=== PATIENT | male | born 1950 | race Caucasian/White ===

== ENCOUNTER 2020-07-17 19:12 | Inpatient (IN) ==
--- NOTE | 2020-07-17 19:33 | Emergency Department Note ---
History of Present Illness General Chief complaint: Abdominal Pain Stated complaint: ABD PAIN Time Seen by Provider: 07/17/20 19:18 Source: patient Mode of arrival: other Limitations: no limitations History of Present Illness Provider complaint: Abdominal pain Onset (ago): hour(s) Location: abdomen Radiation: back Severity: moderate Pain Consistency: + constant Maximum Pain Intensity: 10 Current Pain Intensity: 10 Quality: + constant Relieved By: + none Exacerbated By: + none Associated symptoms: + fever/chills, + loss of appetite and + nausea/vomiting; no chest pain and no shortness of breath Treatments prior to arrival: none This is a 70-year-old male 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 Patient states he began feeling nauseous and having abdominal pain earlier today and thought perhaps he had food poisoning. Patient states he did have several episodes of soft stools however no overt diarrhea. No melena, no hematochezia. Patient states he was nauseated however did not have any vomiting. Patient states he did have chills however did not feel as though he was fevered. Patient denies any recent change in medications. Patient states he does have a history of kidney stones also and as the pain persisted he began to think that was the etiology. Patient denies any history of diverticulitis, inguinal hernia, or any abdominal surgery. Patient states he has had a total of 5 kidney stones, the last one was a few years ago and he was able to pass it. Patient denies any recent change in his urine. Pt seen during a time of high acuity and national emergency pandemic while wearing PPE. Home Medications Medication Instructions Recorded Confirmed Type hydrochlorothiazide 25 mg PO DAILY 07/17/20 07/17/20 History levothyroxine 112 mcg PO DAILY 07/17/20 07/17/20 History lisinopril 10 mg PO DAILY 07/17/20 07/17/20 History lovastatin 40 mg PO HS 07/17/20 07/17/20 History ondansetron 4 mg PO Q6H 07/17/20 07/17/20 History Allergies Allergy/AdvReac Type Severity Reaction Status Date / Time coffee (Coffea arabica) Allergy Unknown Unverified 07/17/20 19:56 Past Med/Surg History Medical History (Updated 07/18/20 @ 12:59 by Tracie M. Black, SOFTWARE DEVELOPMENT PROJECT MANAGER) Hyperlipidemia Hypertension Hypothyroidism (acquired) Ureterolithiasis Social History Smoking Status: Never smoker Hx Alcohol Use: No Hx Substance Use: No Preferred Language: Greek Communication Ability: Effective Gear Grinder Required: No Beliefs That Will Affect Care: None Current Living Situation: Other Current Living Situation Comment: Long Term Feels Safe at Home: Yes Assistive Devices: None Review of Systems See HPI for pertinent positives & negatives. and A total of 10 systems reviewed and were otherwise negative Physical Exam Vital Signs Vital Signs - 24 hr 07/17/20 23:58 07/18/20 01:16 Pulse Rate 89 Pulse Rate [Apical] 102 H Respiratory Rate 16 16 Respiratory Effort / Characteristics Non-Labored Spontaneous Respiratory Depth Normal Blood Pressure 120/72 Blood Pressure [Left Arm] 139/97 Blood Pressure Mean [Left Arm] 111 Pulse Oximetry 95 92 Oxygen Delivery Method Room Air Room Air GENERAL: alert, uncomfortable appearing, well nourished, mild distress, non- toxic EYE EXAM: normal conjunctiva, PERRL and EOM's grossly intact OROPHARYNX: no exudate, no erythema, lips, buccal mucosa, and tongue normal and mucous membranes are moist NECK: supple, no nuchal rigidity, no adenopathy, non-tender LUNGS: Clear to auscultation. Normal chest wall mechanics, no w/r/r HEART: no murmurs, S1 normal and S2 normal ABDOMEN: abdomen soft, tenderness with palpation in the periumbilical area as well as the left lower quadrant, normo-active bowel sounds, no masses, no rebound or guarding. BACK: Back is symmetrical on inspection and there is no deformity, no midline tenderness, no CVA tenderness. SKIN: no rashes and no bruising UPPER EXTREMITIES: upper extremities are grossly normal. FROM, nml pulses b/l. LOWER EXTREMITIES: No pitting edema. FROM, nml pulses b/l. NEURO EXAM: Normal sensorium, cranial nerves II-XII grossly intact, normal speech, no gross weakness of arms, no gross weakness of legs. Gross sensation intact. Course Course 2032: Patient updated on results. 2039: Discussed with Dr. Brooks, urology. 2119: Discussed with [facility] nurse, they will contact provider, physician anatomic pathology assistant who sent the patient over. 2139: Discussed with BETTE Cooper at [facility]. If patient does return tonight, they could arrange follow-up as an outpatient with urology, however they have no capability of controlling his pain beyond Tylenol or ibuprofen. He states it will take several days for him to get approval for an outpatient trip to an office also. 2340: Patient states pain is returning and is now worse in his back and his abdomen. UA was reassuring. Patient states he did have coronavirus in April and recovered. Administered Medications Acetaminophen (Acetaminophen 325 Mg Tab) 650 mg PO Q4H PRN PRN Reason: pain/fever Stop: 08/17/20 01:55 Last Admin: 07/18/20 19:57 Dose: 650 mg Documented by: [id number] Hydromorphone HCl (Hydromorphone Inj 0.5 Mg/0.5 Ml Syr) 0.5 mg IV Q3H PRN PRN Reason: Severe Pain Stop: 08/01/20 03:16 Last Admin: 07/18/20 19:59 Dose: 0.5 mg Documented by: [id number] Admin: 07/18/20 16:24 Dose: 0.5 mg Documented by: [id number] Admin: 07/18/20 09:11 Dose: 0.5 mg Documented by: [id number] Admin: 07/18/20 05:47 Dose: 0.5 mg Documented by: [id number] Ceftriaxone Sodium 2,000 mg/ (Dextrose) 70 mls @ 100 mls/hr IV Q24H MARTIN; Protocol Stop: 07/28/20 02:29 Last Infusion: 07/18/20 03:07 Dose: 0 mls/hr Documented by: [id number] Admin: 07/18/20 02:25 Dose: 100 mls/hr Documented by: [id number] Sodium Chloride (Nss 1000ml) 1,000 mls @ 125 mls/hr IV .Q8H MARTIN Stop: 08/17/20 01:59 Last Admin: 07/18/20 19:57 Dose: 125 mls/hr Documented by: [id number] Infusion: 07/18/20 19:39 Dose: 125 mls/hr Documented by: [id number] Admin: 07/18/20 11:39 Dose: 125 mls/hr Documented by: [id number] Infusion: 07/18/20 11:08 Dose: 125 mls/hr Documented by: [id number] Infusion: 07/18/20 03:08 Dose: 125 mls/hr Documented by: [id number] Infusion: 07/18/20 02:26 Dose: 0 mls/hr Documented by: [id number] Admin: 07/18/20 02:25 Dose: 125 mls/hr Documented by: [id number] Levothyroxine Sodium (Levothyroxine Sodium 112 Mcg Tablet) 112 mcg PO DAILYBB [facility] Stop: 08/17/20 13:59 Last Admin: 07/18/20 13:44 Dose: 112 mcg Documented by: [id number] Lovastatin (Lovastatin 20 Mg Tab) 40 mg PO HS [facility] Stop: 08/17/20 20:59 Last Admin: 07/18/20 20:04 Dose: 40 mg Documented by: [id number] Tamsulosin HCl (Tamsulosin Hcl 0.4 Mg Cap) 0.4 mg PO QAM [facility] Stop: 08/17/20 08:59 Last Admin: 07/18/20 07:29 Dose: 0.4 mg Documented by: [id number] Discontinued Medications Fentanyl Citrate (Fentanyl Citrate 100 Mcg/2 Ml Vial) 50 mcg IV Q15M PRN PRN Reason: Pain Stop: 07/31/20 20:36 Last Admin: 07/17/20 22:31 Dose: 50 mcg Documented by: [id number] Sodium Chloride (Nss 1000ml) 1,000 mls @ 999 mls/hr IV .Q1H1M ONE Stop: 07/17/20 20:34 Last Infusion: 07/17/20 21:11 Dose: 0 mls/hr Documented by: [id number] Admin: 07/17/20 20:08 Dose: 999 mls/hr Documented by: [id number] Acetaminophen (Ofirmev) 1,000 mg in 100 mls @ 400 mls/hr IV NOW STA Stop: 07/17/20 20:15 Last Infusion: 07/17/20 20:35 Dose: 0 mls/hr Documented by: [id number] Admin: 07/17/20 20:13 Dose: 400 mls/hr Documented by: [id number] Magnesium Sulfate/Dextrose (Magnesium Sulfate / D5w) 1 gm in 100 mls @ 100 mls/hr IV NOW STA Stop: 07/17/20 22:47 Last Infusion: 07/17/20 23:11 Dose: 0 mls/hr Documented by: [id number] Admin: 07/17/20 22:00 Dose: 100 mls/hr Documented by: [id number] Sodium Chloride (Nss) 500 mls @ 125 mls/hr IV .Q4H MARTIN Stop: 08/16/20 22:14 Last Infusion: 07/18/20 02:01 Dose: 0 mls/hr Documented by: [id number] Admin: 07/17/20 23:10 Dose: 125 mls/hr Documented by: [id number] Sodium Chloride (Nss) 500 mls @ 125 mls/hr IV .Q4H MARTIN Stop: 08/17/20 09:14 Last Admin: 07/18/20 11:43 Dose: Not Given Documented by: [id number] Morphine Sulfate (Morphine Sulfate 4 Mg/Ml 1 Ml Carp\Vial) 4 mg IV NOW STA Stop: 07/17/20 23:41 Last Admin: 07/17/20 23:57 Dose: 4 mg Documented by: [id number] Tamsulosin HCl (Tamsulosin Hcl 0.4 Mg Cap) 0.4 mg PO NOW ONE Stop: 07/17/20 20:02 Last Admin: 07/17/20 20:13 Dose: 0.4 mg Documented by: [id number] Medical Decision Making Differential Diagnosis Differential diagnoses includes but is not limited to gastritis, peptic ulcer disease, GERD, gallbladder disease, pancreatitis, small bowel obstruction, acute coronary syndrome, pericarditis, ischemic bowel, irritable bowel disease, irritable bowel syndrome, appendicitis, diverticulitis, malignancy, hernia, urinary tract infection, torsion, [/ectopic (if female)], perforation, trauma, infectious. Medical Records Attestation: I reviewed the patient's medical records. Home Medications Current Medication List: was personally reviewed by me Laboratory Data Attestation: I reviewed the patient's lab results. Result diagrams: 07/17/20 19:29 07/17/20 19:29 Lab Results 07/17/20 07/17/20 07/17/20 Range/Units 19:29 19:29 20:09 WBC 15.15 H (4.8-10.8) K/uL RBC 5.47 (4.7-6.1) M/uL Hgb 17.1 (14.0-18.0) g/dL Hct 47.9 (42-52) % MCV 87.6 (80-100) fL MCH 31.3 (25-34) pg MCHC 35.7 (32-36) g/dL RDW Std Deviation 44.0 (36.4-46.3) fL RDW Coeff of Morteza 13.6 (11.5-14.5) % Plt Count 200 (130-400) K/uL MPV 11.7 H (7.4-10.4) fL Immature Gran % (Auto) 0.3 % Neut % (Auto) 82.2 % Lymph % (Auto) 8.3 % [place] % (Auto) 9.0 % Eos % (Auto) 0.1 % Baso % (Auto) 0.1 % Neut # (Auto) 12.46 H (1.4-6.5) K/uL Lymph # (Auto) 1.25 (1.2-3.4) K/uL [place] # (Auto) 1.36 H (0.11-0.59) K/uL Eos # (Auto) 0.01 (0-0.5) K/uL Baso # (Auto) 0.02 (0-0.2) K/uL Immature Gran # (Auto) 0.05 H (0.00-0.02) K/uL PT 11.9 (9.0-12.0) Seconds INR 1.1 (0.9-1.1) Sodium 138 (136-145) mmol/L Potassium 4.1 (3.5-5.1) mmol/L Chloride 102 (98-107) mmol/L Carbon Dioxide 28 (21-32) mmol/L Anion Gap 8.0 (3-11) BUN 19 H (7-18) mg/dl Creatinine 1.56 H (0.6-1.4) mg/dl Est Cr Clr Drug Dosing 46.5 ml/min Est GFR ( Amer) 51.0 Est GFR (Non-Af Amer) 44.0 BUN/Creatinine Ratio 11.9 (10-20) Glucose 153 H (70-99) mg/dl Calcium 9.8 (8.5-10.1) mg/dl Magnesium 1.7 L (1.8-2.4) mg/dl Total Bilirubin 1.2 H (0.2-1) mg/dl AST 41 H (15-37) U/L ALT 84 H (12-78) U/L Alkaline Phosphatase 69 (45-117) U/L Troponin I < 0.015 (0-0.045) ng/ml Total Protein 8.3 H (6.4-8.2) gm/dl Albumin 4.2 (3.4-5.0) gm/dl Globulin 4.1 H (2.5-4.0) gm/dl Albumin/Globulin Ratio 1.0 (0.9-2) Lipase 132 (73-393) U/L Urine Color Urine Appearance (Clear) Urine pH (4.5-7.5) Ur Specific [place] (1.000-1.030) Urine Protein (Negative) Urine Glucose (UA) (Negative) Urine Ketones (Negative) Urine Blood (Negative) Urine Nitrite (Negative) Urine Bilirubin (Negative) Urine Urobilinogen (Negative) Ur Leukocyte Esterase (Negative) Urine WBC (Auto) (0-5) /hpf Urine RBC (Auto) (0-4) /hpf U Hyaline Cast (Auto) (0-5) /lpf U Epithel Cells (Auto) (0-5) /lpf Urine Bacteria (Auto) (Negative) COVID-19 Eval Order SARS-CoV-2, RNA, NAAT (NEGATIVE) 07/17/20 07/18/20 07/18/20 Range/Units 22:40 00:01 00:01 WBC (4.8-10.8) K/uL RBC (4.7-6.1) M/uL Hgb (14.0-18.0) g/dL Hct (42-52) % MCV (80-100) fL MCH (25-34) pg MCHC (32-36) g/dL RDW Std Deviation (36.4-46.3) fL RDW Coeff of [place] (11.5-14.5) % Plt Count (130-400) K/uL MPV (7.4-10.4) fL Immature Gran % (Auto) % Neut % (Auto) % Lymph % (Auto) % [place] % (Auto) % Eos % (Auto) % Baso % (Auto) % Neut # (Auto) (1.4-6.5) K/uL Lymph # (Auto) (1.2-3.4) K/uL [place] # (Auto) (0.11-0.59) K/uL Eos # (Auto) (0-0.5) K/uL Baso # (Auto) (0-0.2) K/uL Immature Gran # (Auto) (0.00-0.02) K/uL PT (9.0-12.0) Seconds INR (0.9-1.1) Sodium (136-145) mmol/L Potassium (3.5-5.1) mmol/L Chloride (98-107) mmol/L Carbon Dioxide (21-32) mmol/L Anion Gap (3-11) BUN (7-18) mg/dl Creatinine (0.6-1.4) mg/dl Est Cr Clr Drug Dosing ml/min Est GFR ( Amer) Est GFR (Non-Af Amer) BUN/Creatinine Ratio (10-20) Glucose (70-99) mg/dl Calcium (8.5-10.1) mg/dl Magnesium (1.8-2.4) mg/dl Total Bilirubin (0.2-1) mg/dl AST (15-37) U/L ALT (12-78) U/L Alkaline Phosphatase (45-117) U/L Troponin I (0-0.045) ng/ml Total Protein (6.4-8.2) gm/dl Albumin (3.4-5.0) gm/dl Globulin (2.5-4.0) gm/dl Albumin/Globulin Ratio (0.9-2) Lipase (73-393) U/L Urine Color Yellow Urine Appearance Clear (Clear) Urine pH 5.0 (4.5-7.5) Ur Specific [place] 1.016 (1.000-1.030) Urine Protein 1+ H (Negative) Urine Glucose (UA) Negative (Negative) Urine Ketones 1+ H (Negative) Urine Blood 1+ H (Negative) Urine Nitrite Negative (Negative) Urine Bilirubin Negative (Negative) Urine Urobilinogen Negative (Negative) Ur Leukocyte Esterase Negative (Negative) Urine WBC (Auto) 1-5 (0-5) /hpf Urine RBC (Auto) 0-4 (0-4) /hpf U Hyaline Cast (Auto) 1-5 (0-5) /lpf U Epithel Cells (Auto) 5-10 H (0-5) /lpf Urine Bacteria (Auto) Negative (Negative) COVID-19 Eval Order Covid19 [facility] SARS-CoV-2, RNA, NAAT NEGATIVE (NEGATIVE) Imaging Data Radiologist's Impression: ABDOMEN AND PELVIS CT WITHOUT CONTRAST CT DOSE: 599.25 mGy.cm HISTORY: Acute left lower quadrant abdominal pain LLQ pain TECHNIQUE: Multiaxial CT images of the abdomen and pelvis were performed without contrast. A dose lowering technique was utilized adhering to the principles of ALARA. COMPARISON STUDY: None. FINDINGS: Imaged inferior cardiac chambers are unremarkable. Coronary artery calcifications. Mild linear subsegmental bibasilar atelectasis/scarring. No pneumatosis or pneumoperitoneum. The unenhanced spleen, mildly atrophic pancreas, adrenal glands and gallbladder are unremarkable. Hepatic steatosis. 1.4 cm hypodense lesion of the superior pole right kidney is suggestive of a probable cyst. Hypodense 3.2 cm exophytic lesion of the interpolar left kidney also likely represents a cyst. 7 mm proteinaceous or hemorrhagic cyst of the inferior pole left kidney. Mild left-sided hydronephrosis secondary to an obstructing 6 x 9 x 11 mm calculus of the ureteropelvic junction. 5 mm nonobstructing calculus of the interpolar left kidney. Reactive perinephric edema. Prostamegaly with evidence of chronic bladder outlet obstruction. There is an 8 mm linear calculus dependently within the urinary bladder diverticulum versus ureterocele on image 359 series 3. There is an additional small diverticulum along the right posterolateral urinary bladder. Small fat filled left inguinal hernia. No aortic aneurysm. No adenopathy. Small hiatal hernia with mild distal esophageal wall thickening. No bowel obstruction. Colonic diverticulosis. No CT evidence of acute appendicitis. Unremarkable soft tissues. The bones appear intact. IMPRESSION: 1. Mild left-sided hydronephrosis secondary to an obstructing 6 x 9 x 11 mm calculus of the ureteropelvic junction. 2. Nonobstructing left nephrolithiasis. 3. Prostamegaly with chronic bladder outlet obstruction. 4. 8 mm calculus is noted dependently within a small urinary bladder diverticulum versus ureterocele. No right-sided hydronephrosis. 5. Colonic diverticulosis. 6. Hepatic steatosis. 7. Additional findings as above. ACT 112: Negative or not required by law. The above report was generated using voice recognition software. It may contain grammatical, syntax or spelling errors. Electronically signed by: Leonardo Ji M.D. 07/17/2020 8:07 PM ECG Data Attestation: I personally reviewed and interpreted this ECG as follows: Indication: + abdominal pain Rate (beats per minute): 103 Rhythm: + sinus tachycardia ECG Intervals/blocks: + Right Bundle branch block and + Prolonged QT ECG [place]: + Normal ECG ST segments: + Nonspecific ST abnormalities Blood Pressure Blood Pressure Findings: Elevated blood pressure MDM Narrative This is a 70-year-old male presents to the emergency department due to concern for worsening abdominal pain. Patient found to have significant ureteral calculus, and does have a prior history of stones. Patient was cautiously rehydrated, labs are drawn and sent and showed a leukocytosis of 15, as well as PRAKASH of 1.5 which is increased from a prior drawn earlier today at the retirement. Patient was afebrile, was nauseated on arrival but did not vomit. Patient was cautiously given pain medication here. I did speak with urology, and then with the on-call provider in the [facility] to see if outpatient management was possible. According to the [facility] provider, they do not have the capability to provide pain medication there. Patient could not be discharged with any additional pain medication, and they had concerned about being able to control nausea if pain got so severe. Due to concern for inappropriate discharge plan, case discussed with hospitalist for inpatient monitoring and symptomatic control of his renal colic and likely urologic evaluation. An order was placed for continuous cardiac monitoring. The monitor shows a rate of _97_ with _normal sinus rhythm. Impression & Plan Abdominal pain, Ureterolithiasis, PRAKASH (acute kidney injury), Hypomagnesemia Discharge Plan Visit Data Chief Complaint: Abdominal Pain Stated Complaint: ABD PAIN ED Provider: Emmy Painter Discharge Problem: Abdominal pain, Ureterolithiasis, PRAKASH (acute kidney injury), Hypomagnesemia Patient Disposition: Admitted As Inpatient Condition: Good Discharge Instructions Interventions: ED Discharge Assessment Last Done: 07/18/20 01:16 Discharge Problem: Abdominal pain Qualifiers: Abdominal location: lower abdomen, unspecified Qualified Code(s): R10.30 - Lower abdominal pain, unspecified
[2020-07-17] MEDS ORDERED: SODIUM CHLORIDE 0.9% 1000ML 1,000 ML IV ONE (19:34)
[2020-07-17] MEDS ORDERED: ACETAMINOPHEN 1,000 MG/100 ML VIAL IV STA (20:01)
[2020-07-17] MEDS ORDERED: TAMSULOSIN HCL 0.4 MG CAP PO ONE (20:01)
[2020-07-17 20:02] LABS: Basophils # (auto) 0.02 K/uL (0-0.2); Basophils % (auto) 0.1 %; Eosinophils # (auto) 0.01 K/uL (0-0.5); Eosinophils % (auto) 0.1 %; Hematocrit (blood only) 47.9 % (42-52); Hemoglobin 17.1 g/dL (14.0-18.0); Immature Granulocytes # (auto) 0.05 K/uL (0.00-0.02); Immature Granulocytes % (auto) 0.3 %; Lymphocytes # (auto) 1.25 K/uL (1.2-3.4); Lymphocytes % (auto) 8.3 %; Mean Corpuscular Hemoglobin 31.3 pg (25-34); Mean Corpuscular Hgb Conc 35.7 g/dL (32-36); Mean Corpuscular Volume 87.6 fL (80-100); Mean Platelet Volume 11.7 fL (7.4-10.4); Monocytes # (auto) 1.36 K/uL (0.11-0.59); Neutrophils # (auto) 12.46 K/uL (1.4-6.5); Neutrophils % (auto) 82.2 %; Platelet Count 200 K/uL (130-400); RDW Coefficient of Variation 13.6 % (11.5-14.5); Red Blood Count 5.47 M/uL (4.7-6.1); White Blood Count 15.15 K/uL (4.8-10.8)
--- NOTE | 2020-07-17 20:08 | CT Scan Report ---
ABDOMEN AND PELVIS CT WITHOUT CONTRAST CT DOSE: 599.25 mGy.cm HISTORY: Acute left lower quadrant abdominal pain LLQ pain TECHNIQUE: Multiaxial CT images of the abdomen and pelvis were performed without contrast. A dose lo wering technique was utilized adhering to the principles of ALARA. COMPARISON STUDY: None. FINDINGS: Imaged inferior cardiac chambers are unremarkable. Coronary artery calcifications. Mild [place] ear subsegmental bibasilar atelectasis/scarring. No pneumatosis or pneumoperitoneum. The unenhanced s pleen, mildly atrophic pancreas, adrenal glands and gallbladder are unremarkable. Hepatic steatosis. 1.4 cm hypodense lesion of the superior pole right kidney is suggestive of a probable cyst. Hypodense 3.2 cm exophytic lesion of the interpolar left kidney also likely represents a cyst. 7 mm proteinace ous or hemorrhagic cyst of the inferior pole left kidney. Mild left-sided hydronephrosis secondary to an obstructing 6 x 9 x 11 mm calculus of the ureteropelvic junction. 5 mm nonobstructing calculus of the interpolar left kidney. Reactive perinephric edema. Prostamegaly with evidence of chronic bladde r outlet obstruction. There is an 8 mm linear calculus dependently within the urinary bladder diverti culum versus ureterocele on image 359 series 3. There is an additional small diverticulum along the r ight posterolateral urinary bladder. Small fat filled left inguinal hernia. No aortic aneurysm. No ad enopathy. Small hiatal hernia with mild distal esophageal wall thickening. No bowel obstruction. Colonic divert iculosis. No CT evidence of acute appendicitis. Unremarkable soft tissues. The bones appear intact. IMPRESSION: 1. Mild left-sided hydronephrosis secondary to an obstructing 6 x 9 x 11 mm calculus of the ureterope lvic junction. 2. Nonobstructing left nephrolithiasis. 3. Prostamegaly with chronic bladder outlet obstruction. 4. 8 mm calculus is noted dependently within a small urinary bladder diverticulum versus ureterocele. No right-sided hydronephrosis. 5. Colonic diverticulosis. 6. Hepatic steatosis. 7. Additional findings as above. ACT 112: Negative or not required by law. The above report was generated using voice recognition software. It may contain grammatical, syntax o r spelling errors. Electronically signed by: Leonardo Ji M.D. 07/17/2020 8:07 PM
[2020-07-17 20:24] LABS: Alanine Aminotransferase 84 U/L (12-78); Albumin Level 4.2 gm/dl (3.4-5.0); Aspartate Aminotransferase 41 U/L (15-37); BUN Creatinine Ratio 11.9 (10-20); Blood Urea Nitrogen 19 mg/dl (7-18); Calcium 9.8 mg/dl (8.5-10.1); Carbon Dioxide 28 mmol/L (21-32); Chloride 102 mmol/L (98-107); Creatinine Clr Calc Pharmacy 46.5 ml/min; Glucose 153 mg/dl (70-99); Lipase 132 U/L (73-393); Magnesium 1.7 mg/dl (1.8-2.4); Potassium 4.1 mmol/L (3.5-5.1); Sodium 138 mmol/L (136-145)
[2020-07-17 20:29] LABS: Alkaline Phosphatase 69 U/L (45-117); Bilirubin,Total 1.2 mg/dl (0.2-1); Globulin 4.1 gm/dl (2.5-4.0); Total Protein 8.3 gm/dl (6.4-8.2); Troponin I < 0.015 ng/ml (0-0.045)
[2020-07-17 20:29] LABS: INR 1.1 (0.9-1.1); Prothrombin Time 11.9 Seconds (9.0-12.0)
[2020-07-17] MEDS ORDERED: fentaNYL citrate 100 MCG/2 ML VIAL IV PRN (20:37)
[2020-07-17] MEDS ORDERED: MAGNESIUM SULFATE / D5W 1 GM/100 ML BAG IV STA (21:48)
[2020-07-17] MEDS ORDERED: SODIUM CHLORIDE 0.9% 500 ML IV SCH (22:15)
[2020-07-17 23:29] LABS: Appearance Urine Clear (Clear); Bacteria Urine Automated Negative (Negative); Bilirubin Urine Negative (Negative); Blood Urine 1+ (Negative); Color Urine Yellow; Glucose Urine UA Negative (Negative); Ketones Urine 1+ (Negative); Leukocyte Esterase Urine Negative (Negative); Nitrite Urine Negative (Negative); Protein Urine 1+ (Negative); RBC Urine Automated 0-4 /hpf (0-4); Specific Gravity Urine 1.016 (1.000-1.030); Urobilinogen Urine Negative (Negative)
[2020-07-17] MEDS ORDERED: MoRPHine SULFATE 4 MG/ML 1 ML CARP\\VIAL IV STA (23:40)
--- NOTE | 2020-07-18 00:53 | History & Physical Report ---
Date of Service July 18, 2020 Assessment & Plan (1) Calculus of distal left ureter: 6 x 9 x 11 distal left ureteral calculus/mild left hydroureteronephrosis- NPO Follow urine culture and sensitivity Ceftriaxone 1 g IV daily Start tamsulosin 0.4 mg daily Dilaudid 0.5 mg IV every 3 hours as needed severe pain Consult urology Present on Admission?: Yes (2) Hydronephrosis of left kidney: See above Present on Admission?: Yes (3) BPH w urinary obs/LUTS: Place on tamsulosin 0.4 mg p.o. daily Present on Admission?: Yes (4) PRAKASH (acute kidney injury): Creatinine 1.56 upon admission. Placed on NSS 100 mils per hour Repeat BMP in a.m. May be combination of BPH with LUTS and obstructing kidney stone Present on Admission?: Yes (5) Hepatic steatosis: Likely cause of abnormal LFTs. Follow serially Present on Admission?: Yes (6) Hypothyroidism (acquired): While n.p.o., hold levothyroxine 112 mcg daily Present on Admission?: Yes (7) Hypertension: Hold HCTZ and lisinopril due to PRAKASH Present on Admission?: Yes (8) Hyperlipidemia: While patient is n.p.o., hold lovastatin Present on Admission?: Yes History of Present Illness Chief Complaint: The patient presents to the emergency department with complaint of abdominal pain and nausea worsening over the past few days. Primary Care Provider: [facility] The patient is a 70-year-old male resident of [facility], with past medical history including hypertension, hypothyroidism, and hyperlipidemia. Who presents with symptoms as noted above. Work-up in the emergency department included the following abnormal laboratories: Creatinine 1.56, glucose 153, magnesium 1.7, total bilirubin 1.2, AST 41, ALT 84 and Covid 19 -. CT scan of abdomen and pelvis showed mild left-sided hydronephrosis secondary to an obstructing 6 x 9 x 11 calculus at the ureteropelvic junction. There was prostatomegaly with chronic bladder outlet obstruction. Colonic diverticulosis. Hepatic steatosis. Allergies Allergy/AdvReac Type Severity Reaction Status Date / Time coffee (Coffea arabica) Allergy Unknown Unverified 07/17/20 19:56 Home Medications Medication Instructions Recorded Confirmed Type hydrochlorothiazide 25 mg PO DAILY 07/17/20 07/17/20 History levothyroxine 112 mcg PO DAILY 07/17/20 07/17/20 History lisinopril 10 mg PO DAILY 07/17/20 07/17/20 History lovastatin 40 mg PO HS 07/17/20 07/17/20 History ondansetron 4 mg PO Q6H 07/17/20 07/17/20 History Past Med/Surg History Medical History (Updated 07/18/20 @ 03:19 by Johnny Cunningham MD) Hyperlipidemia Hypertension Hypothyroidism (acquired) Ureterolithiasis Social History Smoking Status: Never smoker Hx Alcohol Use: No Hx Substance Use: No Preferred Language: Croatian Communication Ability: Effective Full Stack Php Developer Required: No Beliefs That Will Affect Care: None Current Living Situation: Other Current Living Situation Comment: Nursing Home Feels Safe at Home: Yes Assistive Devices: None Review of Systems Review of Systems: The patient denies chest pain, palpitations, shortness of breath, dyspnea on exertion, cough, lower extremity swelling, sore throat, fevers, chills, sweats, vomiting, blood in urine or stool, dysuria, urinary frequency or urgency, lightheadedness, dizziness, headache, memory loss, loss of consciousness, rash, abnormal bruising or bleeding, imbalance, focal or generalized weakness, numbness or tingling in arms or legs, generalized arthralgias or myalgias, neck pain, or night sweats. The review of systems is otherwise negative other than for that already noted above, and at least 10 systems have been reviewed. Physical Exam Physical Exam: The patient is awake, alert and oriented 3, well developed and well nourished, normocephalic and atraumatic, lying in bed and in no acute distress. HEENT--PERRL, EOMI, mucous membranes and oropharynx dry. Neck--supple. No JVD. No bruits. Thyroid normal, trachea midline, no adenopathy. Heart--normal S1 and S2. No murmurs, rubs or gallops. Lungs--clear bilaterally, no respiratory distress, no accessory muscle use. Abdomen--normal bowel sounds and soft. Tenderness left lower quadrant and left flank area, and suprapubic Extremities--no cyanosis or clubbing. No edema. Dermatologic--normal skin turgor, normal color, no abnormal lymph nodes, no rash. Neurologic--cranial nerves II through XII grossly intact. Rheumatologic--normal range of motion. Psychiatric--normal affect. Results & Data Results & Data ([facility]) Vital Signs (Past 12 Hours) Vital Signs Temp Pulse Pulse Resp BP BP Pulse Ox 07/17/20 23:58 102 H 16 139/97 95 07/17/20 21:45 64 19 121/72 100 07/17/20 20:42 97 H 18 150/88 H 97 07/17/20 19:13 97.5 F L 106 H 20 189/102 H 99 Laboratory Results Laboratory Results WBC 15.15 K/uL (4.8-10.8) H 07/17/20 19: RBC 5.47 M/uL (4.7-6.1) 07/17/20 19: Hgb 17.1 g/dL (14.0-18.0) 07/17/20 19: Hct 47.9 % (42-52) 07/17/20 19: MCV 87.6 fL (80-100) 07/17/20 19: MCH 31.3 pg (25-34) 07/17/20 19: MCHC 35.7 g/dL (32-36) 07/17/20 19: RDW Std Deviation 44.0 fL (36.4-46.3) 07/17/20 19: RDW Coeff of Morteza 13.6 % (11.5-14.5) 07/17/20 19: Plt Count 200 K/uL (130-400) 07/17/20 19: MPV 11.7 fL (7.4-10.4) H 07/17/20 19: Immature Gran % (Auto) 0.3 % 07/17/20 19: Neut % (Auto) 82.2 % 07/17/20: Lymph % (Auto) 8.3 % 07/17/20: [place] % (Auto) 9.0 % 07/17/20 19: Eos % (Auto) 0.1 % 07/17/20 19: Baso % (Auto) 0.1 % 07/17/20: Neut # (Auto) 12.46 K/uL (1.4-6.5) H 07/17/20 19:29 Lymph # (Auto) 1.25 K/uL (1.2-3.4) 07/17/20 19:29 [place] # (Auto) 1.36 K/uL (0.11-0.59) H 07/17/20 19: Eos # (Auto) 0.01 K/uL (0-0.5) 07/17/20 19: Baso # (Auto) 0.02 K/uL (0-0.2) 07/17/20 19: Immature Gran # (Auto) 0.05 K/uL (0.00-0.02) H 07/17/20 19: PT 11.9 Seconds (9.0-12.0) 07/17/20 20:09 INR 1.1 (0.9-1.1) 07/17/20 20:09 Sodium 138 mmol/L (136-145) 07/17/20 19: Potassium 4.1 mmol/L (3.5-5.1) 07/17/20 19: Chloride 102 mmol/L (98-107) 07/17/20 19: Carbon Dioxide 28 mmol/L (21-32) 07/17/20 19: Anion Gap 8.0 (3-11) 07/17/20 19: BUN 19 mg/dl (7-18) H 07/17/20: Creatinine 1.56 mg/dl (0.6-1.4) H 07/17/20 19: Est Cr Clr Drug Dosing 46.5 ml/min 07/17/20 19: Est GFR ( Amer) 51.0 07/17/20 19: Est GFR (Non-Af Amer) 44.0 07/17/20 19: BUN/Creatinine Ratio 11.9 (10-20) 07/17/20 19: Glucose 153 mg/dl (70-99) H 07/17/20 19: Calcium 9.8 mg/dl (8.5-10.1) 07/17/20 19: Magnesium 1.7 mg/dl (1.8-2.4) L 07/17/20 19: Total Bilirubin 1.2 mg/dl (0.2-1) H 07/17/20 19: AST 41 U/L (15-37) H 07/17/20 19:29 ALT 84 U/L (12-78) H 07/17/20 19: Alkaline Phosphatase 69 U/L (45-117) 07/17/20 19: Troponin I < 0.015 ng/ml (0-0.045) 07/17/20 19: Total Protein 8.3 gm/dl (6.4-8.2) H 07/17/20 19: Albumin 4.2 gm/dl (3.4-5.0) 07/17/20 19: Globulin 4.1 gm/dl (2.5-4.0) H 07/17/20 19: Albumin/Globulin Ratio 1.0 (0.9-2) 07/17/20 19: Lipase 132 U/L (73-393) 07/17/20 19: Urine Color Yellow 07/17/20 22:40 Urine Appearance Clear (Clear) 07/17/20 22:40 Urine pH 5.0 (4.5-7.5) 07/17/20 22:40 Ur Specific [place] 1.016 (1.000-1.030) 07/17/20 22:40 Urine Protein 1+ (Negative) H 07/17/20 22:40 Urine Glucose (UA) Negative (Negative) 07/17/20 22:40 Urine Ketones 1+ (Negative) H 07/17/20 22:40 Urine Blood 1+ (Negative) H 07/17/20 22:40 Urine Nitrite Negative (Negative) 07/17/20 22:40 Urine Bilirubin Negative (Negative) 07/17/20 22:40 Urine Urobilinogen Negative (Negative) 07/17/20 22:40 Ur Leukocyte Esterase Negative (Negative) 07/17/20 22:40 Urine WBC (Auto) 1-5 /hpf (0-5) 07/17/20 22:40 Urine RBC (Auto) 0-4 /hpf (0-4) 07/17/20 22:40 U Hyaline Cast (Auto) 1-5 /lpf (0-5) 07/17/20 22:40 U Epithel Cells (Auto) 5-10 /lpf (0-5) H 07/17/20 22:40 Urine Bacteria (Auto) Negative (Negative) 07/17/20 22:40 COVID-19 Eval Order Covid19 [facility]Now [facility] 07/18/20 00:01 SARS-CoV-2, RNA, NAAT NEGATIVE (NEGATIVE) 07/18/20 00:01 Diagnostic Findings [facility], [id number] CT Scan Report Patient: MARTI DEAN [id number] Date: 07/17/20MR#: [id number]: BOX AAcct ID:[id number]: [facility] [place]irth Date: 1950City Zip: [place] [address]Bam: 70Location: EDSex: MRoom/Bed:Att Phy:Diagnosis: ABD PAINPri Phy: [facility] [place]Service Date: 07/17/20Fam Phy:Interpreting Phy: Chidi JiAdmit Phy: Ordering Phy: Emmy Painter DO cc: ~ ABDOMEN AND PELVIS CT WITHOUT CONTRAST CT DOSE: 599.25 mGy.cm HISTORY: Acute left lower quadrant abdominal pain LLQ pain TECHNIQUE: Multiaxial CT images of the abdomen and pelvis were performed without contrast. A dose lowering technique was utilized adhering to the principles of ALARA. COMPARISON STUDY: None. FINDINGS: Imaged inferior cardiac chambers are unremarkable. Coronary artery calcifications. Mild linear subsegmental bibasilar atelectasis/scarring. No pneumatosis or pneumoperitoneum. The unenhanced spleen, mildly atrophic pancreas, adrenal glands and gallbladder are unremarkable. Hepatic steatosis. 1.4 cm hypodense lesion of the superior pole right kidney is suggestive of a probable cyst. Hypodense 3.2 cm exophytic lesion of the interpolar left kidney also likely represents a cyst. 7 mm proteinaceous or hemorrhagic cyst of the inferior pole left kidney. Mild left-sided hydronephrosis secondary to an obstructing 6 x 9 x 11 mm calculus of the ureteropelvic junction. 5 mm nonobstructing calculus of the interpolar left kidney. Reactive perinephric edema. Prostamegaly with evidence of chronic bladder outlet obstruction. There is an 8 mm linear calculus dependently within the urinary bladder diverticulum versus ureterocele on image 359 series 3. There is an additional small diverticulum along the right posterolateral urinary bladder. Small fat filled left inguinal hernia. No aortic aneurysm. No adenopathy. Small hiatal hernia with mild distal esophageal wall thickening. No bowel obstruction. Colonic diverticulosis. No CT evidence of acute appendicitis. Unremarkable soft tissues. The bones appear intact. IMPRESSION: 1. Mild left-sided hydronephrosis secondary to an obstructing 6 x 9 x 11 mm calculus of the ureteropelvic junction. 2. Nonobstructing left nephrolithiasis. 3. Prostamegaly with chronic bladder outlet obstruction. 4. 8 mm calculus is noted dependently within a small urinary bladder diverticulum versus ureterocele. No right-sided hydronephrosis. 5. Colonic diverticulosis. 6. Hepatic steatosis. 7. Additional findings as above. ACT 112: Negative or not required by law. The above report was generated using voice recognition software. It may contain grammatical, syntax or spelling errors. Electronically signed by: Leonardo Ji M.D. 07/17/2020 8:07 PM Dictated: 07/17/201958Transcribed: 07/17/201958 Code Status & VTE Plan Code Status Full code VTE Prophylaxis Plan VTE Prophylaxis will be ordered: Yes PG Care Time/CCT Total # of Minutes Spent Total Time Spent with Patient: Total time spent is greater than 50% in coordination of care (as documented) at patient's floor/unit and/or counseling patient: Coding Level of Care Code 59150 Initial Inpt Care Lvl 3 Diagnoses Calculus of distal left ureter N20.1 Hydronephrosis of left kidney N13.30 BPH w urinary obs/LUTS N40.1; N13.8 PRAKASH (acute kidney injury) N17.9 Hepatic steatosis K76.0 Hypothyroidism (acquired) E03.9 Hypertension I10 Hyperlipidemia E78.5
[2020-07-18] MEDS ORDERED: ONDANSETRON INJ 2 MG/ML 2 ML VIAL IV PRN (01:56)
[2020-07-18] MEDS ORDERED: ACETAMINOPHEN 325 MG TAB PO PRN (01:56)
[2020-07-18] MEDS: cefTRIAXone SODIUM 2,000 MG in DEXTROSE 5% 50 ML IV SCH (02:25)
[2020-07-18] MEDS: SODIUM CHLORIDE 0.9% 1000ML 1,000 ML IV SCH ×3 (02:25→19:57)
[2020-07-18] MEDS: HYDROmorphone INJ 0.5 MG/0.5 ML SYR IV PRN ×4 (05:47→19:59)
[2020-07-18] MEDS: TAMSULOSIN HCL 0.4 MG CAP PO SCH (07:29)
[2020-07-18] MEDS ORDERED: SODIUM CHLORIDE 0.9% 500 ML IV SCH (09:15)
--- NOTE | 2020-07-18 09:46 | XRay Report ---
KUB CLINICAL HISTORY: Nephrolithiasis. FINDINGS: 2 AP supine abdominal radiographs are correlated with abdominal CT dated 07/17/2011. There i s a nonobstructed abdominal bowel gas pattern noting mild to moderate colonic fecal retention through out the colon. An 11 mm calculus is again seen projecting just below the left ureteropelvic junction. This is located between the L3 and L4 transverse processes. An additional 4 mm calculus projects ove r the left kidney. No calcifications are seen projecting over the right kidney. Phleboliths and prost atic calcifications are noted in the pelvis. The skeletal structures are osteopenic and appear intact . Lumbosacral spondylosis is observed. IMPRESSION: Left-sided nephrolithiasis as above. Electronically signed by: Romero Logan M.D. 07/18/2020 9:44 AM
--- NOTE | 2020-07-18 11:12 | Electrocardiogram Report ---
Test Reason : Blood Pressure : / mmHG Vent. Rate : 103 BPM Atrial Rate : 103 BPM P-R Int : 174 ms QRS Dur : 138 ms QT Int : 380 ms P-R-T Axes : 050 057 007 degrees QTc Int : 497 ms Sinus tachycardia Right bundle branch block Abnormal ECG No previous ECGs available Confirmed by Arie Gage ([id number]) on 07/18/2020 11:12:23 AM Referred By: [facility] SCI Confirmed By:Arie Gage
--- NOTE | 2020-07-18 12:31 | Urology Consultation ---
Date of Consultation July 18, 2020 Assessment & Plan (1) Hydronephrosis of left kidney: Patient admitted undergoing monitoring and hydration. Patient had PRAKASH. Imaging have been completed. I reviewed and interpreted imaging. Appears to have bilateral stone disease with an obstructing left UPJ stone with hydronephrosis. Appears to also have stone down near bladder possibly within a ureterocele. This does appear to be in the ureter however does not have any considerable hydronephrosis or signs of major obstruction. Patient has been tolerating supportive care. Is monitor. It is improving mildly with time and management. Pain continues to be an ongoing issue. Has not developed considerable bleeding or other issues. No fevers or chills. Patient's complicated medical and surgical history is reviewed and summarized above. Patient has previously had stone disease. Plan to continue with close monitoring and supportive care hydration and will monitor for spontaneous passage. We will need to consider possible intervention if patient suddenly worsens or does not show signs that stone is able to pass moving forward. Would likely need to consider bilateral stent placement especially with concern of ureteral stone bilaterally. No considerable signs of obstruction on right however imaging does appear to have a distal stone We will continue with monitoring and supportive care Consider intervention tomorrow if worsening or major change or fevers. If considerable decompensation or if develops bilateral obstruction may need more urgent intervention (2) Ureterolithiasis: History of Present Illness Attending Physician: Bhavik Bertrand MD History of Present Illness New consultation for patient with stone, discomfort, obstruction, and ill feelings. Patient developed sudden onset of pain into flank going down and radiating into groin and back in waves comes and goes. Can be severe at times. Discussed and reviewed patient's family history for any history of stone disease. No considerable history of family stone disease. Also, discussed patient's medical surgery history especially related to any history of urinary issues or stone disease. Patient was admitted and is undergoing observation. Patient on imaging appears to have obstructing stone on the left however may have ureteral stone on right possibly with ureterocele. Allergies Allergy/AdvReac Type Severity Reaction Status Date / Time coffee (Coffea arabica) Allergy Unknown Unverified 07/17/20 19:56 Home Medications Medication Instructions Recorded Confirmed Type hydrochlorothiazide 25 mg PO DAILY 07/17/20 07/17/20 History levothyroxine 112 mcg PO DAILY 07/17/20 07/17/20 History lisinopril 10 mg PO DAILY 07/17/20 07/17/20 History lovastatin 40 mg PO HS 07/17/20 07/17/20 History ondansetron 4 mg PO Q6H 07/17/20 07/17/20 History Patient History Medical History (Updated 07/18/20 @ 12:59 by SONU Montanez) Hyperlipidemia Hypertension Hypothyroidism (acquired) Ureterolithiasis Social History Smoking Status: Never smoker Hx Alcohol Use: No Hx Substance Use: No Preferred Language: Telugu Communication Ability: Effective Gas Appliance Servicer Required: No Beliefs That Will Affect Care: None Current Living Situation: Other Current Living Situation Comment: [facility] Feels Safe at Home: Yes Assistive Devices: None Review of Systems Review of Systems: All systems reviewed & are unremarkable except as noted in HPI & below Physical Exam Physical Exam: General: Alert and oriented x 3 in no acute distress. Patient is well nourished and well kept. HEENT: Normocephalic Atraumatic. Inspection normal. Cranial Nerves 2-12 Grossly intact. Nares are clear. Neck is supple. Normal inspection of face. Normal inspection of neck. Neurologic: No deficits on inspection. Baseline for motor function and sensory. Psychologic: Normal affect. Respiratory: Nonlabored. No use of accessory muscles. No tachypnea or dyspnea. Cardiovascular: No tachycardia Skin: [place] and Dry. No rashes or visible lesions. Extremities: Moving without issues. No motor deficits on inspection Lymphatics: No edema Abdomen: Soft Non-distended. No acites. No rebound or guarding. Results & Data ([facility]) Vital Signs (Past 12 Hours) Vital Signs Temp Pulse Pulse Resp BP BP Pulse Ox 07/18/20 07:02 36.8 C 87 18 119/72 97 07/18/20 02:02 36.5 C 97 H 16 123/77 96 07/18/20 01:16 89 16 120/72 92 PG Care Time/CCT Total # of Minutes Spent Total Time Spent with Patient: Total time spent is greater than 50% in coord ination of care (as documented) at patient's floor/unit and/or counseling patient: Coding Level of Care Code 67437 Initial Inpt Care Lvl 3 Diagnoses Hydronephrosis of left kidney N13.30 Ureterolithiasis N20.1
--- NOTE | 2020-07-18 12:50 | Hospitalist Progress Note ---
Date of Service July 18, 2020 Assessment & Plan (1) Left ureteral calculus: (2) Hydronephrosis of left kidney: Left UPJ stone with hydronephrosis. ? Distal right ureteral stone on CT as well. No hydronephrosis on the right. Patient has no evidence of urosepsis and is hemodynamically stable. Continue IV ceftriaxone. CBC in AM. Left UPJ stone visible on KUB. Patient seen by urology today. Plan for possible cystoscopy with bilateral ureteroscopy and ureteral stent placement tomorrow. Will provide diet today. NPO after midnight. Continue supportive management with IVF, pain control, and tamsulosin. UC&S ordered. Strain all urine. (3) PRAKASH (acute kidney injury): Cr 1.56 on admission. Likely secondary to ureteral obstruction from stone. Will recheck a CMP in the AM. (4) Hepatic steatosis: Likely cause of elevated AST/ALT. Lipase is normal. Recheck in AM. (5) Hypothyroidism (acquired): Continue levothyroxine 112mcg. TSH in AM. (6) Hypertension: BP stable at 119/72. HCTZ and Lisinopril held for PRAKASH. (7) Hyperlipidemia: Continue lovastatin 40mg HS (8) BPH w urinary obs/LUTS: Tamsulosin 0.4mg initiated at admission. Continue on discharge. Admission and Anticipated Discharge Date Admission Date: July 18, 2020 Subjective 70 yo male, [facility] inmate, admitted with 6 x 9 x 11mm left UPJ calculus with hydronephrosis. ? right distal ureteral calculus as well. Patient c/o left lower back pain 9/10 this morning. He is receiving Dilaudid. He denies any f/c or n/v. Review of Systems Constitutional: no fever and no chills Eyes: no worsening vision Ear, Nose, Mouth, Throat: no dizziness Respiratory: no dyspnea Cardiovascular: no chest pain Gastrointestinal: no abdominal pain, no nausea and no vomiting Musculoskeletal: left lower back pain 9/10 Psychiatric: no confusion Physical Exam Physical Exam: Temp Pulse Resp BP Pulse Ox 36.8 C 87 18 119/72 97 07/18/20 07:02 07/18/20 07:02 07/18/20 07:02 07/18/20 07:02 07/18/20 07:02 Patient is afebrile. Vital signs stable. Constitutional: average body habitus; no acute distress ENMT: Ears: no hearing impairment Neck: trachea midline, no thyromegaly Respiratory: normal respiratory effort, lungs clear to auscultation Cardiovascular: RRR, no murmur, no edema Gastrointestinal (Abdomen): Inspection/Auscultation: normal bowel sounds Percussion/Palpation: abdomen soft; abdomen nontender Musculoskeletal: No CVA tenderness. Psychiatric: A+Ox3, euthymic affect Lymphatic: no lymphadenopathy Results & Data Results & Data ([facility]) Vital Signs (Past 12 Hours) Vital Signs Temp Pulse Pulse Resp BP BP Pulse Ox 07/18/20 07:02 36.8 C 87 18 119/72 97 07/18/20 02:02 36.5 C 97 H 16 123/77 96 07/18/20 01:16 89 16 120/72 92 PG Care Time/CCT Total # of Minutes Spent Total Time Spent with Patient: Total time spent is greater than 50% in coordination of care (as documented) at patient's floor/unit and/or counseling patient: Coding [place] [address] Subseq Hosp Care Lvl 2 Patient Type Established History Expanded Problem Focused Exam Expanded Problem Focused Diagnoses Left ureteral calculus N20.1 Hydronephrosis of left kidney N13.30 PRAKASH (acute kidney injury) N17.9 Hepatic steatosis K76.0 Hypothyroidism (acquired) E03.9 Hypertension I10 Hyperlipidemia E78.5 BPH w urinary obs/LUTS N40.1; N13.8
[2020-07-18] MEDS: LEVOTHYROXINE SODIUM 112 MCG TABLET PO SCH (13:44)
[2020-07-18] MEDS: LOVASTATIN 20 MG TAB PO SCH (20:04)
[2020-07-19] MEDS: HYDROmorphone INJ 0.5 MG/0.5 ML SYR IV PRN ×3 (01:55→21:22)
[2020-07-19] MEDS: cefTRIAXone SODIUM 2,000 MG in DEXTROSE 5% 50 ML IV SCH (02:06)
[2020-07-19] MEDS: SODIUM CHLORIDE 0.9% 1000ML 1,000 ML IV SCH ×5 (04:19→23:37)
[2020-07-19] MEDS: LEVOTHYROXINE SODIUM 112 MCG TABLET PO SCH (05:12)
[2020-07-19 07:04] LABS: Hematocrit (blood only) 39.5 % (42-52); Mean Corpuscular Hemoglobin 31.3 pg (25-34); Mean Corpuscular Hgb Conc 35.4 g/dL (32-36); Mean Corpuscular Volume 88.2 fL (80-100); Mean Platelet Volume 11.3 fL (7.4-10.4); Platelet Count 164 K/uL (130-400); RDW Coefficient of Variation 13.9 % (11.5-14.5); RDW Standard Deviation 45.1 fL (36.4-46.3); Red Blood Count 4.48 M/uL (4.7-6.1); White Blood Count 7.78 K/uL (4.8-10.8)
[2020-07-19 07:24] LABS: BUN Creatinine Ratio 10.3 (10-20); Calcium 8.4 mg/dl (8.5-10.1); Est GFR (African American) 56.7; Est GFR (Non-African American) 48.9; Potassium 4.3 mmol/L (3.5-5.1)
[2020-07-19] MEDS: TAMSULOSIN HCL 0.4 MG CAP PO SCH (07:35)
[2020-07-19 07:47] LABS: Albumin Globulin Ratio 0.9 (0.9-2); Globulin 3.3 gm/dl (2.5-4.0); Thyroid Stimulating Hormone 1.67 uIu/ml (0.300-4.500); Total Protein 6.3 gm/dl (6.4-8.2)
--- NOTE | 2020-07-19 08:35 | History & Physical Bridge Note ---
Date of Service July 19, 2020 History & Physical Bridge Note I have examined the patient, reviewed the History & Physical and in the interval since the performance of the History & Physical I have noted the following changes of clinical significance: no changes noted Cystoscopy with possible bilateral ureteroscopy
--- NOTE | 2020-07-19 09:03 | Urology Progress Note ---
Date of Service July 19, 2020 Assessment & Plan (1) PRAKASH (acute kidney injury): (2) Hydronephrosis of left kidney: (3) Left ureteral calculus: 70 yo M admitted with 6 x 9 x 11 mm left UPJ calculus with hydronephrosis, PRAKASH. - Afebrile, lab work reviewed - creatinine remains elevated to 1.43, but improved, WBC within normal limits. UC&S - pending. - Bilateral stone disease with an obstructing left UPJ stone with hydronephrosis, 8 mm calculus within a small urinary bladder diverticulum vs ureterocele - Treatment options and surgical intervention previously discussed with patient by Dr. Brooks. He is agreeable to proceed. - Strain all urine - Keep NPO for procedure today - Findings reviewed with Dr. Brooks. Given his PRAKASH and left hydronephrosis in the context of an obstructing 11 mm UPJ stone, will proceed with OR for cystoscopy and bilateral stent placement. - Risks and benefits to be reviewed with patient by Dr. Brooks. OR notified. Preoperative EKG on chart, CXR ordered. COVID testing negative. Will continue with IV Ceftriaxone preoperatively. ATTENDING NOTE: Patient was assessed and independently evaluated and examined and interviewed. Agree with findings. Plan to move forward due to bilateral stones with left UPJ obstruction from stone. Risks and benefits discussed at length for procedure. These include bleeding, infection, injury to surrounding tissues or organs, and risks associated with anesthesia. Patient states understanding and agrees to proceed. Will sign consent and proceed. Plan for cystoscopy and possible bilateral ureteroscopy. Admission and Anticipated Discharge Date Admission Date: July 18, 2020 Subjective Pt seen and examined at bedside this AM. He reports no issues overnight. Reports intermittent pain located primarily left flank to abdomen, relieved by IV hydromorphone. Last dose 07/19 @0155. Voiding spontaneously, no dysuria or hematuria. No nausea or vomiting. No fever or chills. He is NPO since midnight. No additional concerns today. Chart review: Afebrile. Lab work: creatinine 1.43, WBC 7.78, Hgb 14.0. UC&S pending. On IV Ceftriaxone. Review of Systems Constitutional: as per Subjective / HPI Gastrointestinal: as per Subjective / HPI Genitourinary: + as per Subjective / HPI Physical Exam Constitutional: well developed and well nourished; no acute distress and not ill appearing Respiratory: normal respiratory effort and able to speak in complete sentences; no respiratory distress and no labored breathing Cardiovascular: Extremities: no calf tenderness and no pedal edema Gastrointestinal (Abdomen): Inspection/Auscultation: abdomen normal to inspection; abdomen not distended Percussion/Palpation: abdomen soft; abdomen nontender and no guarding Musculoskeletal: Head/Neck/Chest: normocephalic and head atraumatic Extremities: extremities normal to inspection Skin: warm and dry Neurologic: moves all extremities and awake Psychiatric: Orientation: alert and oriented x 3 Genitourinary: no CVA tenderness Results & Data ([facility]) Vital Signs (Past 12 Hours) Vital Signs Temp Pulse Resp BP Pulse Ox 07/19/20 07:37 36.7 C 82 18 158/81 H 95 07/18/20 23:01 36.7 C 83 16 133/79 91 PG Care Time/CCT Total # of Minutes Spent Total Time Spent with Patient: Total time spent is greater than 50% in coordination of care (as documented) at patient's floor/unit and/or counseling patient: Coding Level of Care Code 55601 Subseq Hosp Care Lvl 2 Diagnoses PRAKASH (acute kidney injury) N17.9 Hydronephrosis of left kidney N13.30 Left ureteral calculus N20.1
--- NOTE | 2020-07-19 09:06 | Hospitalist Progress Note ---
Date of Service July 19, 2020 Assessment & Plan (1) Calculus of distal left ureter: 6 x 9 x 11 distal left ureteral calculus/mild left hydroureteronephrosis- Urology consulted -- appreciate assistance Urine culture pending -- follow Continue ceftriaxone Continue flomax Dilaudid IV prn pain. Added 1x tyelnol for headache today NPO for intervention today Cr stable but remains elevated at 1.43 (prior 1.56 on 07/17) Continue to monitor labs (2) Hydronephrosis of left kidney: See above (3) BPH w urinary obs/LUTS: Place on tamsulosin 0.4 mg p.o. daily -- continue (4) PRAKASH (acute kidney injury): Creatinine 1.56 upon admission, currently 1.43 NSS 100 mils per hour May be combination of BPH with LUTS and obstructing kidney stone Repeat BMP in a.m. (5) Hepatic steatosis: Likely cause of abnormal LFTs --> resolved (6) Hypothyroidism (acquired): While n.p.o., hold levothyroxine 112 mcg daily -- resume tomorrow (7) Hypertension: Hold HCTZ and lisinopril due to PRAKASH as above BP elevated to 158/81 in setting of pain continue to monitor (8) Hyperlipidemia: lovastatin Dispo: OR today with urology Admission and Anticipated Discharge Date Admission Date: July 18, 2020 Subjective Patient evaluated this morning. Seen by Urology and plans for cysto and stent this morning. Pain now 4/10 compared to 8-10/10 in days past and controlled with current medications. In his left back/flank with radiation to his groin on left side. Has not moved his bowels since Sunday but denies abdominal pain and states he hasn't had much to eat. Nausea controlled. Slight headache this morning without visual changes or new headache compared to headaches in the past. Requesting tylenol. Discussed ordered IV as he is NPO for procedure. No fever, chills, chest pain, shortness of breath. Cough chronic d/t his sinus issues and has taken zytrec in the past. No abdominal pain, nausea or vomiting. Review of Systems Review of Systems: All systems reviewed & are unremarkable except as noted in HPI & below Physical Exam Constitutional: well developed, well nourished and average body habitus; no ac cristobal distress and not ill appearing ENMT: Ears: no hearing impairment Neck: trachea midline, no thyromegaly Respiratory: normal respiratory effort, lungs clear to auscultation normal respiratory effort and able to speak in complete sentences; no respiratory distress and no labored breathing Cardiovascular: RRR, no murmur, no edema Extremities: no calf tenderness and no pedal edema Gastrointestinal (Abdomen): Inspection/Auscultation: abdomen normal to inspection and normal bowel sounds; abdomen not distended Percussion/Palpation: abdomen soft; abdomen nontender and no guarding Musculoskeletal: Head/Neck/Chest: normocephalic and head atraumatic Ex tremities: extremities normal to inspection Neurologic: moves all extremities and awake Psychiatric: Orientation: alert and oriented x 3 Genitourinary: + CVA tenderness (L sided) Lymphatic: no lymphadenopathy Results & Data Results & Data ([facility]) Vital Signs (Past 12 Hours) Vital Signs Temp Pulse Resp BP Pulse Ox 07/19/20 07:37 36.7 C 82 18 158/81 H 95 07/18/20 23:01 36.7 C 83 16 133/79 91 Laboratory Results 07/19/20 07/19/20 Range/Units 06:29 06:29 WBC 7.78 (4.8-10.8) K/uL RBC 4.48 L (4.7-6.1) M/uL Hgb 14.0 D (14.0-18.0) g/dL Hct 39.5 L (42-52) % MCV 88.2 (80-100) fL MCH 31.3 (25-34) pg MCHC 35.4 (32-36) g/dL RDW Std Deviation 45.1 (36.4-46.3) fL RDW Coeff of Morteza 13.9 (11.5-14.5) % Plt Count 164 (130-400) K/uL MPV 11.3 H (7.4-10.4) fL Sodium 141 (136-145) mmol/L Potassium 4.3 (3.5-5.1) mmol/L Chloride 109 H (98-107) mmol/L Carbon Dioxide 28 (21-32) mmol/L Anion Gap 4.0 (3-11) BUN 15 (7-18) mg/dl Creatinine 1.43 H (0.6-1.4) mg/dl Est Cr Clr Drug Dosing 51.0 ml/min Est GFR ( Amer) 56.7 Est GFR (Non-Af Amer) 48.9 BUN/Creatinine Ratio 10.3 (10-20) Glucose 149 H (70-99) mg/dl Calcium 8.4 L (8.5-10.1) mg/dl Total Bilirubin 1.0 (0.2-1) mg/dl AST 18 (15-37) U/L ALT 43 (12-78) U/L Alkaline Phosphatase 58 (45-117) U/L Total Protein 6.3 L D (6.4-8.2) gm/dl Albumin 3.0 L (3.4-5.0) gm/dl Globulin 3.3 (2.5-4.0) gm/dl Albumin/Globulin Ratio 0.9 (0.9-2) TSH 1.670 (0.300-4.500) uIu/ml PG Care Time/CCT Total # of Minutes Spent Total Time Spent with Patient: Total time spent is greater than 50% in coordination of care (as documented) at patient's floor/unit and/or counseling patient: Coding Level of Care Code 37311 Subseq Hosp Care Lvl 2 Diagnoses Calculus of distal left ureter N20.1 Hydronephrosis of left kidney N13.30 BPH w urinary obs/LUTS N40.1; N13.8 PRAKASH (acute kidney injury) N17.9 Hepatic steatosis K76.0 Hypothyroidism (acquired) E03.9 Hypertension I10 Hyperlipidemia E78.5
[2020-07-19] MEDS ORDERED: ACETAMINOPHEN 1000 MG/100 ML IV IV ONE (09:32)
--- NOTE | 2020-07-19 09:47 | XRay Report ---
XR chest 1V portable CLINICAL HISTORY: pre-op COMPARISON STUDY: None FINDINGS: The heart is the upper limits of normal in size. There is aortic tortuosity. There is mild superior mediastinal prominence likely vascular. There is no focal pulmonary consolidation. There is no failure. There are no pleural effusions.[ IMPRESSION: Single view chest. No acute findings. ACT 112: Negative or not required by law. Electronically signed by: Santana Gonzalez M.D. 07/19/2020 9:45 AM
[2020-07-19] MEDS ORDERED: ONDANSETRON INJ 2 MG/ML 2 ML VIAL ONE (11:56)
[2020-07-19] MEDS ORDERED: PROPOFOL IV EMULSION 10 MG/ML 20 ML VIAL IV ONE (11:56)
[2020-07-19] MEDS ORDERED: LIDOCAINE HCL 2% 2 ML VIAL/AMP(20MG/ML) INFIL ONE (11:56)
[2020-07-19] MEDS ORDERED: MIDAZOLAM HCL 1 MG/ML 2ML VIAL ONE (11:57)
[2020-07-19] MEDS ORDERED: fentaNYL citrate 100 MCG/2 ML VIAL ONE (11:57)
--- NOTE | 2020-07-19 12:11 | Anesthesiology Consultation ---
Date of Service July 19, 2020 History Surgery Operation Date: 07/19/20 11:15 Proposed Procedures p Bilateral Cystoscopy, Stents, and Laser Lithotripsy Gustavo Brooks DO Height/Weight Height: 5 ft 7 in Weight: 91 kg Allergies Allergy/AdvReac Type Severity Reaction Status Date / Time coffee (Coffea arabica) Allergy Unknown Unverified 07/19/20 10:48 cocoa perry AdvReac Diarrhea Uncoded 07/19/20 10:49 vanilla perry AdvReac Diarrhea Uncoded 07/19/20 10:49 Medications Home Medications Medication Instructions Recorded Confirmed Last Taken hydrochlorothiazide 25 mg PO DAILY 07/17/20 07/17/20 07/14/20 levothyroxine 112 mcg PO DAILY 07/17/20 07/17/20 07/14/20 lisinopril 10 mg PO DAILY 07/17/20 07/17/20 07/14/20 lovastatin 40 mg PO HS 07/17/20 07/17/20 07/14/20 ondansetron 4 mg PO Q6H 07/17/20 07/17/20 07/17/20 Active Medications Generic Name Dose Route Start Last Admin Trade Name Freq PRN Reason Stop Dose Admin Acetaminophen 650 mg 07/18/20 01:56 07/18/20 19:57 Acetaminophen 325 Mg Tab PO 08/17/20 01:55 650 mg Q4H PRN Administration pain/fever Hydromorphone HCl 0.5 mg 07/18/20 03:17 07/19/20 01:55 Hydromorphone Inj 0.5 Mg/0.5 Ml Syr IV 08/01/20 03:16 0.5 mg Q3H PRN Administration Severe Pain Ceftriaxone Sodium 2,000 mg/ 70 mls @ 100 mls/hr 07/18/20 02:30 07/19/20 02:48 Dextrose IV 07/28/20 02:29 Infused Q24H MARTIN Infusion Protocol Sodium Chloride 1,000 mls @ 125 mls/hr 07/18/20 02:15 07/19/20 04:19 Nss 1000ml IV 08/17/20 01:59 125 mls/hr .Q8H MARTIN Administration Levothyroxine Sodium 112 mcg 07/18/20 14:00 07/19/20 05:12 Levothyroxine Sodium 112 Mcg Tablet PO 08/17/20 13:59 Not Given DAILYBB MARTIN Lovastatin 40 mg 07/18/20 21:00 07/18/20 20:04 Lovastatin 20 Mg Tab PO 08/17/20 20:59 40 mg HS MARTIN Administration Tamsulosin HCl 0.4 mg 07/18/20 09:00 07/19/20 07:35 Tamsulosin Hcl 0.4 Mg Cap PO 08/17/20 08:59 0.4 mg QAM MARTIN Administration NPO Date Last Intake of Fluids: 07/18/20 Time Last Intake of Fluids: 23:30 Date Last Intake of Solids: 07/18/20 Time Last Intake of Solids: 23:00 Past Medical History Medical History Hyperlipidemia Hypertension Hypothyroidism (acquired) Ureterolithiasis Exercise / Class Metabolic Activity II 4-5 Yardwork/Stairs/Walk up hill Past Anesthesia History No Hx of Anesthesia Complications and No Family Hx of Anesthesia Complications History of PONV No Hx of PONV and No Hx of Motion Sickness Social History Smoking Status: Never smoker Hx Alcohol Use: No Hx Substance Use: No Physical Exam Vital Signs Last Vital Signs Temp 36.6 C 07/19/20 10:50 Pulse 74 07/19/20 10:50 Resp 20 07/19/20 10:50 BP 139/84 07/19/20 10:50 Pulse Ox 96 07/19/20 10:50 Constitutional + obese ENMT Mouth: no dentition abnormality Thyromental Distance: > or= 3.5 Finger Breadths Mallampati Class: II Neck normal visual inspection, trachea midline and + facial hair; neck extension not limited Respiratory normal respiratory effort Auscultation: lungs clear to auscultation bilaterally Cardiovascular Rate/Rhythm: regular rate and regular rhythm Heart Sounds: no murmur Vessels: no carotid bruit Musculoskeletal Spine: normal cervical ROM Extremities: extremities normal to inspection Neurologic moves all extremities Motor/Sensory: no sensory deficit Psychiatric Orientation: alert and oriented x 3 Testing Laboratory Results 07/19/20 06:29 07/19/20 06:29 PT 11.9 Seconds (9.0-12.0) 07/17/20 20:09 INR 1.1 (0.9-1.1) 07/17/20 20:09 Urine Color Yellow 07/17/20 22:40 Urine Appearance Clear (Clear) 07/17/20 22:40 Urine pH 5.0 (4.5-7.5) 07/17/20 22:40 Ur Specific [place] 1.016 (1.000-1.030) 07/17/20 22:40 Urine Protein 1+ (Negative) H 07/17/20 22:40 Urine Glucose (UA) Negative (Negative) 07/17/20 22:40 Urine Ketones 1+ (Negative) H 07/17/20 22:40 Urine Nitrite Negative (Negative) 07/17/20 22:40 Ur Leukocyte Esterase Negative (Negative) 07/17/20 22:40 Urine WBC (Auto) 1-5 /hpf (0-5) 07/17/20 22:40 Urine RBC (Auto) 0-4 /hpf (0-4) 07/17/20 22:40 U Hyaline Cast (Auto) 1-5 /lpf (0-5) 07/17/20 22:40 U Epithel Cells (Auto) 5-10 /lpf (0-5) H 07/17/20 22:40 Urine Bacteria (Auto) Negative (Negative) 07/17/20 22:40 07/18/20 10:34 Urine Culture - Preliminary Urine,Clean Catch No growth - Less than 1,000 colonies/mL, Final report to follow. Chest X-Ray Date: 07/19/20 Findings: + NAD
[2020-07-19] MEDS ORDERED: NALOXONE HCL 0.4 MG/1 ML VIAL/CARP IV PRN (12:15)
[2020-07-19] MEDS ORDERED: FLUMAZENIL 0.1 MG/1 ML 10 ML VIAL IV PRN (12:15)
[2020-07-19] MEDS ORDERED: LABETALOL HCL IV 5 MG/ML 20ML IV PRN (12:15)
[2020-07-19] MEDS ORDERED: ePHEDrine sulfate 50 MG/ML AMP IV PRN (12:15)
[2020-07-19] MEDS ORDERED: PROMETHAZINE HCL 12.5 MG in SODIUM CHLORIDE 0.9% 50 ML IV PRN (12:15)
[2020-07-19] MEDS ORDERED: fentaNYL citrate 100 MCG/2 ML VIAL IV PRN (12:15)
[2020-07-19] MEDS ORDERED: ONDANSETRON INJ 2 MG/ML 2 ML VIAL IV PRN (12:15)
[2020-07-19] MEDS ORDERED: ATROPINE SULFATE 0.1 MG/ML 10ML SYR IV PRN (12:15)
--- NOTE | 2020-07-19 13:42 | Operative Report ---
PG Post Operative Report Pre & Post Diagnosis Preop: Obstructing ureteral stone on left with possible distal ureteral stone on the right. Postop: Same and large diverticulum with multiple bladder stones Operation Date: 07/19/20 11:15 <No data on this case meets the specified criteria> I identified the patient and participated in the time-out.: Yes Procedure Cystoscopy with destruction and extraction of bladder stones Bilateral retrograde pyelogram, ureteral dilation, and stent placement. Right ureteroscopy and stone basket extraction Operation Date: 07/19/20 11:15 <No data on this case meets the specified criteria> Surgeon Samuel Brooks, II, DO [employer] In[employer] None Estimated Blood Loss 5 Findings Consistent with Post-Op Diagnosis Multiple bladder stones in diverticulum on right trigone. Right ureteral Stone destroyed and larger fragments removed. Specimens Stone Fragments Drains 6 Fr Multilength Bilateral 20 Fr Johnson Anesthesia Type General Complications none Disposition Disposition: Recovery Room Indications Patient with bothersome stones. Risks and benefits discussed at length. Description of Procedure Patient was consented and brought back to the operating room. Patient was placed under anesthesia in the supine position and moved to the dorsal lithotomy position. Patient was prepped and draped in the regular sterile fashion. A time out was completed. A 30degree Cystoscope was placed into the bladder and the entire bladder was examined. The UO's were identified. On the right, the UO was cannulized with a catheter and a retrograde pyelogram was completed. A wire was then placed. The ureter was then dilated. The Rigid ureteroscope was taken into the ureter. A ureteral stone was identified. The stone was grasped and removed and sent for analysis. The entire area was once again examined. No residual large fragments or areas of concern were noted. The scope was slowly removed with the wire left in place. Contrast was placed through the scope for a pyelogram to assist in stent placement. The entire ureter was examined as the scope was slowly removed. No obstructions or other areas of concern were noted. A large diverticulum was noted just lateral to the right UO. This had multiple larger stones with 3 stones approx 8mm each and innumerable smaller stones. These were destroyed and removed. The bladder was inspected and no considerable areas of concern. The patient had an massive median lobe of prostate with lateral lobe enlargement as well. Minor bleeding was noted from the varicosities. The bladder was severely tribeculated. On the left, the UO was cannulized with a catheter and a retrograde pyelogram was completed. A wire was then placed. Considerable manipulation was necessary to get the wire in position. The area was dilated. With the wires in place, a 6 Fr Double J stent was placed on each side. It was confirmed with fluoroscopy. With the stents in place, the bladder was emptied. The scope was removed. The patient was cleaned, aroused from anesthesia, and transferred to the pacu in stable condition having tolerated the procedure well with no complications. I was present and participated in all aspects of the procedure. The patient will be monitored in the PACU until transferred. I attest to the content of the Intraoperative Record and any orders documented therein. Any exceptions are noted below.
[2020-07-19] MEDS ORDERED: PHENYLEPHRINE 100MCG/ML 5ML SYR ONE (14:36)
[2020-07-19] MEDS ORDERED: ePHEDrine sulfate 50 MG/ML SYR ONE (14:36)
[2020-07-19] MEDS ORDERED: DIATRIZOATE MEGLUMINE 30% 100ML VIAL INSTIL ONE (15:04)
--- NOTE | 2020-07-19 15:32 | Fluoroscopy Report ---
INTRAOPERATIVE RADIOGRAPHS CLINICAL HISTORY: Bilateral ureteral stent placement. Fluoroscopy time: 55 seconds. FINDINGS: 4 spot fluoroscopic views of the abdomen are correlated with abdominal CT dated 07/17/2020. The provided images show the proximal and distal ends of bilateral ureteral stents in appropriate pos ition. A calcification is seen adjacent to the proximal end of the left ureteral stent on the third i mage. IMPRESSION: Intraoperative images showing bilateral ureteral stents in appropriate position. Electronically signed by: Romero Logan M.D. 07/19/2020 3:31 PM
--- NOTE | 2020-07-19 16:51 | Anesthesiology Progress Note ---
Date of Service July 19, 2020 Anesthesia Post Procedure Vital Signs Vital Signs: Temp Pulse Pulse Resp BP Pulse Ox 07/19/20 16:13 37 C 82 14 145/87 H 92 07/19/20 16:00 75 12 144/78 H 95 07/19/20 15:50 36.3 C L 79 15 140/93 92 07/19/20 15:40 70 13 110/70 94 07/19/20 15:30 74 13 110/66 93 07/19/20 15:20 74 13 102/70 96 07/19/20 15:14 36.2 C L 74 14 110/68 94 07/19/20 10:50 36.6 C 74 20 139/84 96 07/19/20 07:37 36.7 C 82 18 158/81 H 95 07/18/20 23:01 36.7 C 83 16 133/79 91 07/18/20 20:06 37 C 102 H 16 154/82 H 94 Pain Intensity Head: Pain Intensity: 5 Abdomen: Pain Intensity: 8 Transfer of Care Handoff Completed per policy Notes Mental Status: alert / awake / arousable and participated in evaluation Patient Amnestic to Procedure: Yes Nausea / Vomiting: adequately controlled Pain: adequately controlled Airway Patency, RR, SpO2: stable & adequate BP & HR: stable & adequate Hydration State: stable & adequate Anesthetic Complications: no major complications apparent and Pt Satisfied with anesthetic care
[2020-07-19] MEDS ORDERED: hydrALAZINE HCL 20 MG/ML VIAL IV PRN (19:09)
[2020-07-19] MEDS: LOVASTATIN 20 MG TAB PO SCH (20:44)
[2020-07-19] MEDS: lisinopril 10 MG TAB PO SCH (20:44)
[2020-07-19] MEDS ORDERED: PHENAZOPYRIDINE HCL 200 MG TAB PO STA (20:54)
[2020-07-20] MEDS: cefTRIAXone SODIUM 2,000 MG in DEXTROSE 5% 50 ML IV SCH (02:47)
[2020-07-20] MEDS: LEVOTHYROXINE SODIUM 112 MCG TABLET PO SCH ×2 (06:08→10:05)
[2020-07-20] MEDS: HYDROmorphone INJ 0.5 MG/0.5 ML SYR IV PRN (07:53)
[2020-07-20] MEDS: SODIUM CHLORIDE 0.9% 1000ML 1,000 ML IV SCH (07:58)
--- NOTE | 2020-07-20 09:07 | Hospitalist Progress Note ---
Date of Service July 20, 2020 Assessment & Plan Admission and Anticipated Discharge Date Admission Date: July 18, 2020 Results & Data Results & Data ([facility]) Vital Signs (Past 12 Hours) Vital Signs Temp Pulse Resp BP Pulse Ox 07/20/20 07:23 37.3 C 73 18 127/72 93 07/20/20 03:59 37.1 C 74 14 123/76 93 07/19/20 23:49 37.0 C 77 14 129/71 92 Laboratory Results 07/19/20 Range/Units 14:49 Stone Source Pending Stone Weight Pending Stone Composition Pending Stone Composition 2 Pending PG Care Time/CCT Total # of Minutes Spent Total Time Spent with Patient: Total time spent is greater than 50% in coordination of care (as documented) at patient's floor/unit and/or counseling patient: Coding
[2020-07-20] MEDS ORDERED: oxyCODONE HCL IR 5 MG TAB (IMMEDIATE RELEASE) PO PRN (09:08)
[2020-07-20 09:31] LABS: Basophils # (auto) 0.02 K/uL (0-0.2); Basophils % (auto) 0.2 %; Eosinophils # (auto) 0.26 K/uL (0-0.5); Eosinophils % (auto) 3.1 %; Hematocrit (blood only) 38.6 % (42-52); Hemoglobin 13.7 g/dL (14.0-18.0); Immature Granulocytes # (auto) 0.02 K/uL (0.00-0.02); Immature Granulocytes % (auto) 0.2 %; Lymphocytes # (auto) 1.41 K/uL (1.2-3.4); Lymphocytes % (auto) 16.9 %; Mean Corpuscular Hemoglobin 31.4 pg (25-34); Mean Corpuscular Hgb Conc 35.5 g/dL (32-36); Mean Corpuscular Volume 88.3 fL (80-100); Mean Platelet Volume 11.3 fL (7.4-10.4); Monocytes # (auto) 0.92 K/uL (0.11-0.59); Monocytes % (auto) 11.1 %; Neutrophils # (auto) 5.69 K/uL (1.4-6.5); Neutrophils % (auto) 68.5 %; Platelet Count 161 K/uL (130-400); RDW Coefficient of Variation 13.5 % (11.5-14.5); Red Blood Count 4.37 M/uL (4.7-6.1); White Blood Count 8.32 K/uL (4.8-10.8)
[2020-07-20] MEDS: lisinopril 10 MG TAB PO SCH (10:05)
[2020-07-20] MEDS: TAMSULOSIN HCL 0.4 MG CAP PO SCH (10:05)
[2020-07-20 10:16] LABS: Albumin Globulin Ratio 0.8 (0.9-2); Albumin Level 2.8 gm/dl (3.4-5.0); BUN Creatinine Ratio 9.8 (10-20); Bilirubin,Total 0.9 mg/dl (0.2-1); Calcium 7.8 mg/dl (8.5-10.1); Creatinine Clr Calc Pharmacy 82.8 ml/min; Est GFR (African American) 100.2; Est GFR (Non-African American) 86.4; Globulin 3.3 gm/dl (2.5-4.0); Potassium 3.5 mmol/L (3.5-5.1); Total Protein 6.1 gm/dl (6.4-8.2)
--- NOTE | 2020-07-20 11:10 | Urology Progress Note ---
Date of Service July 20, 2020 Assessment & Plan (1) Ureterolithiasis: Postop day #1 status post intervention in the form of cystoscopy, litholapaxy, right ureteroscopy and stone extraction with stent placement, left ureteral stent placement I explained the procedure to the patient as he had questions about what occurred yesterday He feels much better today He is stable for discharge home I do not believe he requires additional antibiotics now We will have to follow-up as an outpatient for definitive stone treatment Likely should go home with a significant bowel regimen given lack of bowel movements in several days Admission and Anticipated Discharge Date Admission Date: July 18, 2020 Subjective Status post intervention yesterday He feels much better today Does report that he is been constipated for several days and is anxious to have a bowel movement Kidney related pain has resolved since the procedure Review of Systems Review of Systems: All systems reviewed & are unremarkable except as noted in HPI & below Physical Exam 2 Constitutional: well developed and well nourished Respiratory: no respiratory distress Cardiovascular: Extremities: no pedal edema Gastrointestinal (Abdomen): Inspection/Auscultation: abdomen normal to inspection Results & Data ([facility]) Vital Signs (Past 12 Hours) Vital Signs Temp Pulse Resp BP Pulse Ox 07/20/20 07:23 37.3 C 73 18 127/72 93 07/20/20 03:59 37.1 C 74 14 123/76 93 07/19/20 23:49 37.0 C 77 14 129/71 92 PG Care Time/CCT Total # of Minutes Spent Total Time Spent with Patient: Total time spent is greater than 50% in coordination of care (as documented) at patient's floor/unit and/or counseling patient: Coding Level of Care Code 28206 Subseq Hosp Care Lvl 2 Diagnoses Ureterolithiasis N20.1
[2020-07-20] MEDS ORDERED: bisacodyL 10 MG SUPP PR STA (11:32)
--- NOTE | 2020-07-20 11:40 | Discharge Summary ---
Date of Service July 20, 2020 Admission HPI Per Admitting Provider The patient is a 70-year-old male resident of [facility], with past medical history including hypertension, hypothyroidism, and hyperlipidemia. Who presents with symptoms as noted above. Work-up in the emergency department included the following abnormal laboratories: Creatinine 1.56, glucose 153, magnesium 1.7, total bilirubin 1.2, AST 41, ALT 84 and Covid 19 -. CT scan of abdomen and pelvis showed mild left-sided hydronephrosis secondary to an obstructing 6 x 9 x 11 calculus at the ureteropelvic junction. There was prostatomegaly with chronic bladder outlet obstruction. Colonic diverticulosis. Hepatic steatosis. Admission Exam Per Admitting Provider The patient is awake, alert and oriented 3, well developed and well nouris hed, normocephalic and atraumatic, lying in bed and in no acute distress. HEENT--PERRL, EOMI, mucous membranes and oropharynx dry. Neck--supple. No JVD. No bruits. Thyroid normal, trachea midline, no adenopathy. Heart--normal S1 and S2. No murmurs, rubs or gallops. Lungs--clear bilaterally, no respiratory distress, no accessory muscle use. Abdomen--normal bowel sounds and soft. Tenderness left lower quadrant and left flank area, and suprapubic Extremities--no cyanosis or clubbing. No edema. Dermatologic--normal skin turgor, normal color, no abnormal lymph nodes, no rash. Neurologic--cranial nerves II through XII grossly intact. Rheumatologic--normal range of motion. Psychiatric--normal affect. Principal Diagnosis L Ureteral Stone with Hydronephrosis Discharge Exam Constitutional well developed, well nourished and average body habitus; no acute distress and not ill appearing Eyes + anicteric sclerae and PERRL ENMT Ears: no hearing impairment Neck trachea midline, no thyromegaly Respiratory normal respiratory effort and able to speak in complete sentences; no respiratory distress and no labored breathing Cardiovascular RRR, no murmur, no edema Gastrointestinal (Abdomen) Inspection/Auscultation: abdomen normal to inspection and normal bowel sounds; abdomen not distended Percussion/Palpation: abdomen soft; abdomen nontender and no guarding Musculoskeletal Head/Neck/Chest: normocephalic and head atraumatic Extremities: extremities normal to inspection Skin warm, dry Neurologic moves all extremities and awake Psychiatric Orientation: alert and oriented x 3 Genitourinary + CVA tenderness (decreased) Lymphatic no lymphadenopathy Discharge Data Allergies Allergy/AdvReac Type Severity Reaction Status Date / Time coffee (Coffea arabica) Allergy Unknown Unverified 07/19/20 10:48 cocoa perry AdvReac Diarrhea Uncoded 07/19/20 10:49 vanilla perry AdvReac Diarrhea Uncoded 07/19/20 10:49 Consultations 07/17/20 23:52 ED Decision to Admit Stat 07/18/20 01:56 Consult Urology Routine Procedures Performed Operation Date: 07/19/20 11:15 Actual Procedures s Bilateral Stent Insertion,(Bilateral) - Samuel Brooks DO p Bilateral Cystoscopy, Cystolitholapaxy(Not Applicable) - Samuel Brooks DO Ordered Studies 07/17/20 19:34 CT abd pelvis wo con Stat 07/18 KUB 07/19/20 11:00 FL retrograde includes kub Routine CXR Hospital Course (1) Calculus of distal left ureter: 6 x 9 x 11 distal left ureteral calculus/mild left hydroureteronephrosis- Urology consulted Abx -- Ceftriaxone while inpatient Urine culture negative -- per discussion with Urology, able to d/c without abx at this time Flomax Pain control, IVF, antiemetics while inpatient --> pain 2-3/10 prior to d/c with no further nausea. Tolerated diet without issue S/P Cystoscopy with destruction and extraction of bladder stones, Bilateral retrograde pyelogram, ureteral dilation, and stent placement, Right ureteroscopy and stone basket extraction with Dr. Brooks on 07/19 Cr elevated at 1.56 on 07/17 secondary to stone --> normalized to 0.88 on repeat BMP after stone removal Stones sent for analysis Sent with rx for Tylenol 3 and flomax --> patient also sent with daily miralax and colace BID for bowel regimen while on pain medications. Denied abdominal pain and was passing gas. 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 +BS To follow up with Urology as outpatient in next 2 weeks (2) Hydronephrosis of left kidney: See above (3) BPH w urinary obs/LUTS: Placed on tamsulosin 0.4 mg p.o. daily -- continued at discharge F/u Urology as above for calculi/stent (4) PRAKASH (acute kidney injury): Creatinine 1.56 upon admission, currently 1.43 NSS 100 mils per hour May be combination of BPH with LUTS and obstructing kidney stone Repeat BMP in a.m. (5) Hepatic steatosis: Likely cause of abnormal LFTs --> resolved (6) Hypothyroidism (acquired): Levothyroxine 112 mcg daily (7) Hypertension: Held HCTZ and lisinopril due to PRAKASH as above Cr normalized and BP elevated and lisinopril resumed HCTZ to resume tomorrow BP stable 127/72 prior to discharge (8) Hyperlipidemia: lovastatin Total Time Total Time Spent Total Time Spent (In Minutes): 60 Discharge Plan Discharge Items [facility] Disposition[facility] Reason For Visit: OBSTRUCTING L URETERAL CALCULUS W/ L HYDRO Discharge Diagnosis: Left Ureteral Calculus with Hydonephrosis Condition on Discharge: Good Goals: You have been hospitalized for an urgent problem which required surgery. During your stay at [facility], we have made an effort to correct the problem that brought you to the hospital while keeping you as comfortable as possible. Surgery and medications were used to bring your condition under control and your discharge instructions will include directions for any medications you should take after leaving the hospital. Please make sure to follow the advice of your surgeon regarding follow up with the surgeon and with your primary care provider. Activity: Resume your previous activity Non-emergency contact: Primary Care Provider and Urologist Call non-emergency contact if: you have any medication questions, your symptoms worsen and your pain is not controlled Follow-up/Referrals: Samuel Brooks DO [Physician] - (2 weeks) Bear RITTER [Primary Care Provider] - Diet: Heart Healthy Addtl Attending Provider Instructions: You have been hospitalized for abdominal pain and found to have kidney stones causing obstruction and back up of fluid into the kidneys. Urology was consulted and you went to surgery for treatment and stent placement. You do not need any further antibiotics per Urology. You will need to follow up with them in two weeks. You will be sent on a prescription for pain control and flomax for stone expulsion. You may use tylenol for all other non-severe pain. You should continue daily miralax and colace to help with bowel movements until you return to normal function. Please follow up with PCP in next week. Please return to the emergency department with any fever, chills, worsening abdominal pain, increased bleeding, or for any other symptoms that are concerning for you. It has been a pleasure being a part of the medical team providing for you while you have been in the hospital. Take care! Pending Studies at Discharge: No Stand-Alone Forms: My [facility] Skilled Items Patient informed of condition?: Yes Discharge Level of Care: Other Communicable Disease: No Discharge Prognosis: Stable Lines: None Urinary Catheter: No Medications and DC Order Prescriptions: New tamsulosin 0.4 mg Capsule 0.4 mg PO QAM 7 Days Qty: 7 RF: 0 acetaminophen-codeine 300-15 mg tablet 1 tab PO Q6H PRN (Reason: pain) Qty: 10 RF: 0 polyethylene glycol 3350 [Miralax] 17 gram/dose powder 17 g PO DAILY 4 Days Qty: 68 RF: 0 docusate sodium [Col-Rite] 100 mg capsule 100 mg PO BID Qty: 10 RF: 0 Continued lovastatin 40 mg Tablet 40 mg PO HS RF: 0 lisinopril 10 mg Tablet 10 mg PO DAILY RF: 0 hydrochlorothiazide 25 mg Tablet 25 mg PO DAILY RF: 0 ondansetron 4 mg Tablet,Disintegrating 4 mg PO Q6H RF: 0 levothyroxine 112 mcg Tablet 112 mcg PO DAILY RF: 0 Discharge Orders: Discharge Order (Routine); Ordered 07/20/20 Ordered By: Dolores Kim/Other Patient Handouts: Preventing Deep Vein Thrombosis, Anatomy of the Male Urinary Tract, Understanding Kidney Stones, Identifying Kidney Stones Admission Data Admit Date/Time: 07/18/20 01:49 Attending Provider: Vivek Wade Admit Provider: Johnny Cunningham Primary Care Provider: Bear RITTER Other Providers: Bhavik Bertrand ; Johnny Cunningham ; Samuel Brooks Coding Level of Care Code D/C Day Management >30 mins Diagnoses Calculus of distal left ureter N20.1 Hydronephrosis of left kidney N13.30 BPH w urinary obs/LUTS N40.1; N13.8 PRAKASH (acute kidney injury) N17.9 Hepatic steatosis K76.0 Hypothyroidism (acquired) E03.9 Hypertension I10 Hyperlipidemia E78.5
[2020-07-22 23:17] LABS: Component 2 DNR; Source BLADDER STONE
== END 2020-07-20 15:12 | DRG 661 ==
LOC: ED 19:12 → 3W 07-18 01:16 → SUATTDRO 07-18 01:49